=== PATIENT | female | born 1940 | race Caucasian/White ===

== ENCOUNTER → 2017-02-04 | Outpatient (CLI) | payer MEDICARE ==
[~2017-02-04] MED LIST: ALBU2.5V; ASCO10004 PO; ASPI-614 PO; BIOT1TAB PO; BUPR300T4 PO; BUSPAR PO; CHOL10002 PO; CLON0.1T; DIAZ5TAB4 PO; DIPH25CA61 PO; ENZY1CAP PO; FISH OIL PO; FLUO10CA13 PO; FLUO20CA19 PO; FURO20TA3 PO; LISI5TAB7 PO; LORA0.5T PO; LOVA20TA68 PO; MAGNESIUM PO; METO25TA35 PO; MIRT15TA3 PO; MULT-516 PO; MULT-658 PO; OMNIPAQUE 350 MG/ML, 100ML BOTTLE ONE; OXYC10TA6 PO; OXYC20TA2 PO; POTA10TA PO; POTA20TA14 PO; RESV1CAP2 PO; TEMA15CA PO; VITA1TAB3 PO; VITA200C7 PO; VITAMIN C PO; VITAMIN D PO; [UNRECOGNIZED DRUG - CODE]; magnesium PO
== END | disposition home or self-care (01) ==
LOC: CFH 11:12
PROVIDERS: ATTEND Internal Medicine Hematology & Oncology
DX: J84.9 Interstitial pulmonary disease, unspecified (principal); M48.54XA Collapsed vertebra, not elsewhere classified, thoracic region, initial encounter for fracture; C85.80 Other specified types of non-Hodgkin lymphoma, unspecified site; I51.7 Cardiomegaly; M43.8X4 Other specified deforming dorsopathies, thoracic region; M47.894 Other spondylosis, thoracic region; E27.8 Other specified disorders of adrenal gland; K83.8 Other specified diseases of biliary tract; N28.1 Cyst of kidney, acquired; K57.10 Diverticulosis of small intestine without perforation or abscess without bleeding; Z90.49 Acquired absence of other specified parts of digestive tract
CPT/HCPCS: 71260; 74177; Q9967

== ENCOUNTER → 2018-02-19 | Outpatient (CLI) | payer MEDICARE ==
[~2018-02-19] MED LIST changes: -BIOT1TAB PO; +BIOT1TAB2 PO; +LOVA-39 PO; -LOVA20TA68 PO; -OMNIPAQUE 350 MG/ML, 100ML BOTTLE ONE; -RESV1CAP2 PO; +RESV1CAP3 PO
== END | disposition home or self-care (01) ==
LOC: RAD 15:41
PROVIDERS: ATTEND Internal Medicine Critical Care Medicine
DX: J43.9 Emphysema, unspecified (principal); J98.4 Other disorders of lung; I10 Essential (primary) hypertension; E78.5 Hyperlipidemia, unspecified; Z87.891 Personal history of nicotine dependence
CPT/HCPCS: 71250

== ENCOUNTER → 2018-06-29 | Outpatient (CLI) | payer MEDICARE ==
[~2018-06-29] MED LIST changes: -CLON0.1T; +CLON0.1T22
== END | disposition home or self-care (01) ==
LOC: CFH 16:22
PROVIDERS: ATTEND Physical Medicine & Rehabilitation
DX: G31.9 Degenerative disease of nervous system, unspecified (principal); F07.81 Postconcussional syndrome; Z85.118 Personal history of other malignant neoplasm of bronchus and lung
CPT/HCPCS: 70551

== ENCOUNTER → 2018-10-05 | Outpatient (CLI) | payer MEDICARE ==
[~2018-10-05] MED LIST changes: +OMNIPAQUE 350 MG/ML, 100ML BOTTLE ONE
== END | disposition home or self-care (01) ==
LOC: CFH 13:32
PROVIDERS: ATTEND Internal Medicine Hematology & Oncology
DX: C85.80 Other specified types of non-Hodgkin lymphoma, unspecified site (principal); J43.9 Emphysema, unspecified; I70.0 Atherosclerosis of aorta; M47.814 Spondylosis without myelopathy or radiculopathy, thoracic region; M43.8X4 Other specified deforming dorsopathies, thoracic region; I25.10 Atherosclerotic heart disease of native coronary artery without angina pectoris; Z90.49 Acquired absence of other specified parts of digestive tract
CPT/HCPCS: 71260; 74177; Q9967

== ENCOUNTER → 2019-08-22 | Outpatient (CLI) | payer MEDICARE ==
[~2019-08-22] MED LIST changes: -BUPR300T4 PO; +BUPR300T94 PO; -OMNIPAQUE 350 MG/ML, 100ML BOTTLE ONE
== END | disposition home or self-care (01) ==
LOC: CFH 09:53
PROVIDERS: ATTEND Student in an Organized Health Care Education/Training Program
DX: I63.81 Other cerebral infarction due to occlusion or stenosis of small artery (principal); G31.9 Degenerative disease of nervous system, unspecified; I67.82 Cerebral ischemia
CPT/HCPCS: 70551

== ENCOUNTER → 2019-09-23 | Outpatient (CLI) | payer MEDICARE ==
[~2019-09-23] MED LIST changes: +OMNIPAQUE 350 MG/ML, 100ML BOTTLE ONE
== END | disposition home or self-care (01) ==
LOC: CFH 12:49
PROVIDERS: ATTEND Student in an Organized Health Care Education/Training Program
DX: K44.9 Diaphragmatic hernia without obstruction or gangrene (principal); M47.814 Spondylosis without myelopathy or radiculopathy, thoracic region; N28.1 Cyst of kidney, acquired; I51.7 Cardiomegaly; I70.0 Atherosclerosis of aorta; Z90.49 Acquired absence of other specified parts of digestive tract
CPT/HCPCS: 74160; Q9967